=== PATIENT | female | born 1975 | race Caucasian/White ===

== ENCOUNTER 2023-01-17 09:10 | Inpatient (IN) | payer MEDICAID ==
[~2023-01-17] VITALS: Ht 160 cm; Wt 77.1 kg
[2023-01-17] MEDS ORDERED: HALOPERIDOL 5 MG TABLET PO PRN (11:15)
[2023-01-17] MEDS ORDERED: ZOLPIDEM TARTRATE 10 MG TABLET PO PRN (11:15)
[2023-01-17 12:26] LABS: APPEARANCE,URINE HAZY (CLEAR); BILIRUBIN,URINE NEGATIVE (NEGATIVE); GLUCOSE, URINE (UA) NEGATIVE (NEGATIVE); KETONES,URINE 40-60 mg/dL (NEGATIVE); LEUKOCYTE ESTERASE ,URINE TRACE (NEGATIVE); NITRATE,URINE NEGATIVE (NEGATIVE); OCCULT BLOOD,URINE NEGATIVE (NEGATIVE); PROTEIN,URINE 30-70 mg/dL (NEGATIVE); SPECIFIC GRAVITIY, URINE 1.034 (1.003-1.030); UROBILINOGEN,URINE <=1.0 mg/dL (<=1.0)
[2023-01-17] MEDS ORDERED: DiphenhydrAMINE HCL 50 MG/ML VIAL IM ONE (12:30)
[2023-01-17] MEDS ORDERED: HALOPERIDOL LACTATE 5 MG/ML VIAL IM ONE (12:30)
[2023-01-17] MEDS ORDERED: LORazepam 2 MG/ML VIAL IM ONE (12:30)
[2023-01-17 12:39] LABS: RBC,URINE None Seen /HPF (0-2); SQUAMOUS EPITHELIAL CELL,UR Few /LPF (None Seen)
[2023-01-17 12:41] LABS: BACTERIA,URINE Moderate /HPF (None Seen)
[2023-01-17 21:22] LABS: COVID AG,FIA SOURCE NASAL SWAB
[2023-01-17 23:46] VITALS: BP 120/70
[2023-01-17] MEDS: LORazepam 2 MG TABLET PO PRN (23:53)
[2023-01-18] MEDS ORDERED: ALBUTEROL SULFATE HFA 90 MCG/PUFF 8 GM INHALER IH PRN (06:00)
[2023-01-18] MEDS ORDERED: GuaiFENesin/D-METHORPHAN [SUGAR-FREE] 200-20MG/10 ML SYRUP UDCUP PO PRN (06:00)
[2023-01-18] MEDS ORDERED: ONDANSETRON HCL 4 MG TABLET PO PRN (06:00)
[2023-01-18] MEDS ORDERED: DOCUSATE SODIUM 100 MG CAPSULE PO PRN (06:00)
[2023-01-18] MEDS ORDERED: NICOTINE 14 MG/24 HOUR PATCH TD PRN (06:00)
[2023-01-18] MEDS ORDERED: MAGNESIUM HYDROXIDE SUSPENSION 30 ML UDCUP PO PRN (06:00)
[2023-01-18] MEDS ORDERED: ACETAMINOPHEN 325 MG TABLET PO PRN (06:00)
[2023-01-18] MEDS ORDERED: IBUPROFEN 400 MG TABLET PO PRN (06:00)
[2023-01-18] MEDS ORDERED: PETROLATUM,WHITE 28 GM JELLY TP PRN (06:00)
[2023-01-18] MEDS ORDERED: CloNIDine HCL 0.1 MG TABLET PO PRN (06:00)
[2023-01-18] MEDS ORDERED: MAG HYDROX/AL HYDROX/SIMETH ES 30 ML SUSPENSION UDCUP PO PRN (06:00)
[2023-01-18] MEDS ORDERED: LOPERAMIDE HCL 2 MG CAPSULE PO PRN (06:00)
[2023-01-18 08:35] VITALS: BP 155/86
[2023-01-18] MEDS: LORazepam 2 MG TABLET PO PRN (09:22)
[2023-01-18 16:29] VITALS: BP 115/78
[2023-01-18] MEDS: RisperiDONE 1 MG TABLET PO SCH (17:05)
[2023-01-19 08:28] VITALS: BP 134/70
[2023-01-19] MEDS: RisperiDONE 1 MG TABLET PO SCH ×2 (09:31→16:51)
[2023-01-19] MEDS: LORazepam 2 MG TABLET PO PRN (09:31)
[2023-01-19 16:41] VITALS: BP 135/70
[2023-01-19 20:06] VITALS: BP 122/68
[2023-01-20] MEDS: RisperiDONE 1 MG TABLET PO SCH ×2 (08:21→16:22)
[2023-01-20 09:28] VITALS: BP 103/59
[2023-01-20 17:17] VITALS: BP 125/81
[2023-01-20 20:04] VITALS: BP 135/85
[2023-01-21] MEDS: RisperiDONE 1 MG TABLET PO SCH ×2 (08:15→16:13)
[2023-01-21 09:54] VITALS: BP 138/87
[2023-01-21 16:22] VITALS: BP 116/73
[2023-01-22 07:18] LABS: AMPHET/METH SCREEN,URINE NEGATIVE (NEGATIVE); BARBITURATE SCREEN, URINE NEGATIVE (NEGATIVE); BENZODIAZEPINES SCREEN,URINE NEGATIVE (NEGATIVE); CANNABINOID SCREEN,URINE NEGATIVE (NEGATIVE); COCAINE SCREEN,URINE NEGATIVE (NEGATIVE); METHADONE SCREEN, URINE NEGATIVE (NEGATIVE); OPIATE SCREEN,URINE NEGATIVE (NEGATIVE); PHENCYCLIDINE SCREEN,URINE NEGATIVE (NEGATIVE)
[2023-01-22 07:22] LABS: APPEARANCE,URINE HAZY (CLEAR); BILIRUBIN,URINE NEGATIVE (NEGATIVE); GLUCOSE, URINE (UA) NEGATIVE (NEGATIVE); KETONES,URINE NEGATIVE (NEGATIVE); LEUKOCYTE ESTERASE ,URINE LARGE (NEGATIVE); NITRATE,URINE NEGATIVE (NEGATIVE); OCCULT BLOOD,URINE NEGATIVE (NEGATIVE); PROTEIN,URINE NEGATIVE (NEGATIVE); SPECIFIC GRAVITIY, URINE 1.014 (1.003-1.030); UROBILINOGEN,URINE <=1.0 mg/dL (<=1.0)
[2023-01-22 07:44] LABS: BACTERIA,URINE Few /HPF (None Seen); RBC,URINE None Seen /HPF (0-2); SQUAMOUS EPITHELIAL CELL,UR Moderate /LPF (None Seen)
[2023-01-22 07:58] LABS: BASOPHILS % (AUTO) 0.5 % (0.0-2.0); EOSINOPHILS % (AUTO) 1.4 % (1.0-6.0); HEMOGLOBIN 12.8 g/dL (12.0-16.0); LYMPHOCYTES # (AUTO) 1.5 K/uL (1.0-4.8); MEAN CORPUSCULAR HEMOGLOBIN 31.1 pg (26.0-34.0); MEAN CORPUSCULAR HGB CONC 34.7 G/dL (31.0-37.0); MEAN CORPUSCULAR VOLUME 90 fL (80-100); MONOCYTES # (AUTO) 0.5 K/uL (0.1-1.0); MONOCYTES % (AUTO) 6.4 % (2.0-9.0); NEUTROPHILS # (AUTO) 5.1 K/uL (1.8-7.7); NEUTROPHILS % (AUTO) 70.7 % (40.0-70.0); PLATELET COUNT (AUTO) 274 K/uL (150-450); RED BLOOD CELL COUNT(AUTO) 4.12 MIL/uL (4.00-5.20); RED CELL DISTRIBUTION WIDTH 12.9 % (11.5-14.5)
[2023-01-22 08:03] VITALS: BP 108/70
[2023-01-22 08:03] LABS: HEMOGLOBIN A1C 5.8 % (3.8-5.6)
[2023-01-22] MEDS: RisperiDONE 1 MG TABLET PO SCH ×2 (08:03→16:22)
[2023-01-22 08:12] LABS: ANION GAP 6 mmol/L (8-16); CALCIUM, TOTAL 8.8 mg/dL (8.8-10.5); CARBON DIOXIDE 28 mmol/L (22-29); CHLORIDE 105 mmol/L (98-107); CHOL/HDL RATIO 3.9 (3.9-5.7); CHOLESTEROL 184 mg/dL (131-200); CREATININE 0.59 mg/dL (0.60-1.30); FREE T4 (FREE THYROXINE) 1.25 ng/dL (0.76-1.46); GLOMERULAR FILTR. RATE CALC > 60 mL/min (>60); GLUCOSE,RANDOM 98 mg/dL (70-110); HDL CHOLESTEROL 47 mg/dL (40-60); LDL CHOL (CALC.) 119 mg/dL (0-130); POTASSIUM 3.9 mmol/L (3.5-5.1); SODIUM SERUM 139 mmol/L (136-145); TRIGLYCERIDES 88 mg/dL (15-150); UREA NITROGEN, BLOOD 10 mg/dL (7-18)
[2023-01-22 16:02] VITALS: BP 109/60
[2023-01-23 07:25] LABS: COVID AG,FIA SOURCE NASAL SWAB
[2023-01-23] MEDS: RisperiDONE 1 MG TABLET PO SCH ×2 (07:51→16:36)
[2023-01-23 09:41] VITALS: BP 116/75
[2023-01-23 16:09] VITALS: BP 118/65
[2023-01-24] MEDS: RisperiDONE 1 MG TABLET PO SCH ×2 (08:38→16:37)
[2023-01-24 17:26] VITALS: BP 110/57
[2023-01-25 08:39] VITALS: BP 110/64
[2023-01-25] MEDS: RisperiDONE 1 MG TABLET PO SCH ×2 (08:45→16:29)
[2023-01-25 16:29] VITALS: BP 96/56
[2023-01-25 20:30] VITALS: BP 109/71
[2023-01-26] MEDS: RisperiDONE 1 MG TABLET PO SCH ×2 (08:38→16:31)
[2023-01-26 09:39] VITALS: BP 109/84
[2023-01-26 17:09] VITALS: BP 107/64
[2023-01-26 20:57] VITALS: BP 110/65
[2023-01-27] MEDS: RisperiDONE 1 MG TABLET PO SCH ×2 (07:56→15:57)
[2023-01-27 08:21] VITALS: BP 110/68
[2023-01-27] MEDS ORDERED: RISP1TAB98 PO (09:57)
[2023-01-27 16:24] VITALS: BP 115/73
== END 2023-01-27 18:49 | disposition home or self-care (01) | DRG 750 ==
LOC: EMS 09:13 → 3EC 21:09
PROVIDERS: ADMIT Psychiatry & Neurology Child & Adolescent Psychiatry; ATTEND Psychiatry & Neurology Child & Adolescent Psychiatry
DX: F20.0 Paranoid schizophrenia (principal); F32.A Depression, unspecified; G47.00 Insomnia, unspecified; I10 Essential (primary) hypertension; R10.13 Epigastric pain; Z20.822 Contact with and (suspected) exposure to COVID-19
CPT/HCPCS: 80048; 80061; 80307; 81001; 83036; 84439; 85025; 87086; 87186; 99285; J1200; J1630; J2060